=== PATIENT | male | born 1995 | race Caucasian/White ===

== ENCOUNTER 2019-12-15 20:01 | Observation (INO) | payer OTHER ==
[~2019-12-15] VITALS: Ht 170.2 cm; Wt 60.0 kg
[2019-12-15] MEDS ORDERED: LEVEMIR (20:19)
[2019-12-15] MEDS ORDERED: HUMALOG (20:19)
[2019-12-15 21:00] VITALS: BP 120/56
[2019-12-15 21:25] LABS: BASOPHILS 0.9 % (0-2); EOSINOPHILS 0.7 % (0-7); HEMATOCRIT 48.5 % (42.0-54.0); HEMOGLOBIN 16.7 g/dL (13.5-17.5); IMMATURE GRANULOCYTES 0.2 % (0-5); LYMPHOCYTES 25.1 % (15-50); MCHC 34.4 g/dL (31.0-37.0); MCV 92.9 fL (80.0-100.0); MEAN PLATELET VOLUME 10.9 fL (7.4-10.4); MONOCYTES 4.1 % (2-11); PLATELET COUNT 201 10x3/uL (130-400); RBC 5.22 10x6/uL (4.20-6.10); RDW 12.9 % (11.5-14.5); WBC 5.6 10x3/uL (4.8-10.8)
[2019-12-15 21:26] LABS: BILIRUBIN NEGATIVE (NEGATIVE); GLUCOSE 1000 mg/dL (NEGATIVE); KETONE MODERATE mg/dL (NEGATIVE); NITRITE NEGATIVE (NEGATIVE); SPECIFIC GRAVITY 1.015 (1.005-1.020); UROBILINOGEN NORMAL (NORMAL)
[2019-12-15 21:34] LABS: CALC OSMOLALITY 280 mosm/kg (275-300); CALCIUM 9.1 mg/dL (8.5-10.1); CARBON DIOXIDE 21.5 mmol/L (21.0-32.0); CHLORIDE - SERUM 96 mmol/L (98-107); CREATININE - SERUM 1.1 mg/dL (0.6-1.3); GLUCOSE 355 mg/dL (74-106); POTASSIUM - SERUM 4.1 mmol/L (3.5-5.1); SODIUM 132 mmol/L (136-145); UREA NITROGEN 17 mg/dL (7-18); eGFR NON AFRICAN AMERICAN 90 mL/min (90-120)
[2019-12-15 21:39] LABS: ALBUMIN 4.4 g/dL (3.4-5.0); ALKALINE PHOSPHATASE 97 U/L (30-120); ALT (SGPT) 25 U/L (10-68); PROTEIN - SERUM 7.9 g/dL (6.4-8.2)
[2019-12-15 22:00] VITALS: BP 120/55
--- NOTE | 2019-12-15 22:02 | NUR ---
WOUNDS TO RIGHT FOREARM AND RIGHT KNEE CLEANED AND DRESSING PT TOLERATE WELL, SOFT CERVIAL COLLAR PLACED PER MD VERBAL ORDER.
[2019-12-15 23:09] VITALS: BP 122/76
[2019-12-15 23:14] LABS: UDS - AMPHET NEGATIVE QUAL (NEGATIVE); UDS - BARB NEGATIVE QUAL (NEGATIVE); UDS - BENZO NEGATIVE QUAL (NEGATIVE); UDS - COCAINE NEGATIVE QUAL (NEGATIVE); UDS - OPIATE NEGATIVE QUAL (NEGATIVE); UDS - PCP NEGATIVE QUAL (NEGATIVE); UDS - THC NEGATIVE QUAL (NEGATIVE)
[2019-12-15] MEDS ORDERED: LEVEMIR FL100 UNIT/1 SC (23:22)
[2019-12-15] MEDS ORDERED: NOVOLOG100 UNIT/1 SC (23:23)
--- NOTE | 2019-12-15 23:28 | NUR ---
PT ARRIVED ON UNIT VIA STRETCHER ESCORTED BY ER NURSE. TRANSFERRED TO BED AND POSITIONED FOR COMFORT. ELEVATED RIGHT LEG ON PILLOW. ORIENTED TO ROOM AND CALL LIGHT. LEFT AC SALINE LOCKED.
--- NOTE | 2019-12-15 23:40 | NUR ---
PLACED ICE PACKS ON RIGHT KNEE. GAVE ICE CHIPS TO WET MOUTH PT IS NPO OTHERWISE.
[2019-12-15 23:43] VITALS: BP 113/74; Ht 170.2 cm; Wt 60.0 kg
--- NOTE | 2019-12-15 23:54 | NUR ---
ADMISSION ASSESSMENT AND HISTORY COMPLETE.
[2019-12-16 06:16] LABS: BASOPHILS 0.4 % (0-2); EOSINOPHILS 1.5 % (0-7); HEMATOCRIT 43.7 % (42.0-54.0); HEMOGLOBIN 15.1 g/dL (13.5-17.5); IMMATURE GRANULOCYTES 0.2 % (0-5); LYMPHOCYTES 27.7 % (15-50); MCH 31.9 pg (26.0-34.0); MCHC 34.6 g/dL (31.0-37.0); MCV 92.2 fL (80.0-100.0); MEAN PLATELET VOLUME 10.8 fL (7.4-10.4); MONOCYTES 7.5 % (2-11); NEUTROPHILS 62.7 % (40-80); PLATELET COUNT 180 10x3/uL (130-400); RBC 4.74 10x6/uL (4.20-6.10); RDW 12.9 % (11.5-14.5)
[2019-12-16 06:22] LABS: WBC 8.1 10x3/uL (4.8-10.8)
[2019-12-16 06:24] LABS: CALC OSMOLALITY 276 mosm/kg (275-300); CALCIUM 8.6 mg/dL (8.5-10.1); CARBON DIOXIDE 22.2 mmol/L (21.0-32.0); CHLORIDE - SERUM 105 mmol/L (98-107); CREATININE - SERUM 0.8 mg/dL (0.6-1.3); GLUCOSE 70 mg/dL (74-106); POTASSIUM - SERUM 3.2 mmol/L (3.5-5.1); SODIUM 139 mmol/L (136-145); UREA NITROGEN 16 mg/dL (7-18); eGFR NON AFRICAN AMERICAN > 90 mL/min (90-120)
[2019-12-16 06:47] VITALS: BP 113/74
--- NOTE | 2019-12-16 07:30 | NUR ---
REC'D IN BED WITH EYES CLOSED EASILY AROUSED WHEN NAME IS CALLED. RESP EVEN AND UNLABORED WITH NO DISTRESS NOTED. CAN EXPRESS NEEDS AND WANTS. NO C/O NOTED OR VOICED AT THIS TIME. ASSESSMENT COMPLETED. C/L IN REACH AT BEDSIDE.
[2019-12-16 08:38] VITALS: BP 99/60
[2019-12-16 14:02] VITALS: BP 105/71
--- NOTE | 2019-12-16 15:54 | NUR ---
I have reviewed this patient and I concur with the Shift Assessment completed by the Licensed Practical Nurse today this shift.
--- NOTE | 2019-12-16 16:30 | NUR ---
PT LEFT AMA AT THIS TIME VOICES UNDERSTANDING OF THE RISK VS BENEFITS. CHIKI KEITH SPOKE WITH PT AND HE STILL REFUSED TO STAY. AMA FORM WAS SIGNED AND PT WAS IN STABLE CONDITION UPON DEPARTURE.
== END 2019-12-16 16:33 | disposition home or self-care (01) ==
LOC: D.ER 20:01 → EDBD 20:01 → D.MS 22:22 → OBSVTIME 22:22 → D.MS 12-16 16:33
PROVIDERS: Emergency Medicine; ADMIT Surgery; ATTEND Surgery
DX: S30.1XXA Contusion of abdominal wall, initial encounter (principal); E10.65 Type 1 diabetes mellitus with hyperglycemia; S16.1XXA Strain of muscle, fascia and tendon at neck level, initial encounter; V29.9XXA Motorcycle rider (driver) (passenger) injured in unspecified traffic accident, initial encounter; Y92.488 Other paved roadways as the place of occurrence of the external cause; F17.200 Nicotine dependence, unspecified, uncomplicated